=== PATIENT | male | born 1980 | race Two or more races ===

== ENCOUNTER 2022-12-08 10:42 | Inpatient (IN) | payer OTHER ==
[~2022-12-08] VITALS: Ht 165.1 cm; Wt 62.6 kg
--- NOTE | 2022-12-08 11:12 | NUR ---
PACIENTE ALERTA Y ORIENTADO POR 3 ESFERAS REFIERE TENER ABCESO HACE 5 GRANADOS EN GLUTEO DERECHO CAUSANDOLE HELEN DOLOR. SE OBSERVA AREA ROJIZA, CALIENTE AL TACTO CON SECRESIONES COLOR AMARILLA. SE MIDEN SIGNOS VITALES. SE UBICA PACIENTE EN AREA DE OBSERVACION.
--- NOTE | 2022-12-08 12:15 | NUR ---
SE ORIENTA PTE SOBRE EL TRATAMIENTO ORDENADO POR EL DR MOARLES PTE ALERTA Y ORIENTTADO POR 3 SE REALIZA MUESTRAS DE LABORATORIO Y SE ADMINSTRAN MEDICAMENTO MACY ORDENADO PTE SE MANTIENE EN OBSERVACION Y BAJO TRATAMIENTO.
--- NOTE | 2022-12-08 15:17 | NUR ---
SE RECIBE PACIENTE MASCULINO ALERTA Y ORIENTADA X3 EN HORACE #10 CON BARRANDAS ELEVADAS. AREA DE VENOPUNCION EN BRAZO DERECHO CON H/L PATENTE LETA DE EDEMA Y ENROJECIMIENTO. PENDIENTE CONSULTA CON . SE LE ALBERTINA EN TODO MOMENTO PRIEVACIDAD Y SEGURIDAD.
== END 2022-12-12 12:10 | disposition home or self-care (01) | DRG 571 ==
LOC: ER 10:42 → SEC-K 17:11 → MEDJ 17:11
PROVIDERS: Surgery; ADMIT Internal Medicine; ATTEND Internal Medicine
PROC: 8E0ZXY6 Isolation (ICD-10-PCS; 2022-12-10)
PROC: 0J990ZZ Drainage of Buttock Subcutaneous Tissue and Fascia, Open Approach (ICD-10-PCS; 2022-12-11)
PROC: 0JB90ZZ Excision of Buttock Subcutaneous Tissue and Fascia, Open Approach (ICD-10-PCS; principal; 2022-12-11 08:00)
DX: L03.317 Cellulitis of buttock (principal); I96 Gangrene, not elsewhere classified; N39.0 Urinary tract infection, site not specified; L02.31 Cutaneous abscess of buttock; B95.62 Methicillin resistant Staphylococcus aureus infection as the cause of diseases classified elsewhere; D72.829 Elevated white blood cell count, unspecified; F17.210 Nicotine dependence, cigarettes, uncomplicated; F10.21 Alcohol dependence, in remission; Z20.822 Contact with and (suspected) exposure to COVID-19